=== PATIENT | female | born 1980 | race Caucasian/White ===

== ENCOUNTER 2022-04-11 10:55 | Day surgery (SDC) | payer MEDICAID ==
[~2022-04-11] VITALS: Ht 172.7 cm; Wt 116.0 kg
[2022-04-11] MEDS ORDERED: NO HOME MEDS (11:32)
[2022-04-11] MEDS ORDERED: LIDOcaine 1% 30ml preserv. free vial SQ STA (11:32)
[2022-04-11 11:42] VITALS: BP 155/95
[2022-04-11] MEDS ORDERED: LIDOcaine 1%/PF 5ML 10 MG/ML VIAL ONE (12:30)
[2022-04-11 12:55] VITALS: BP 180/105
[2022-04-11 13:00] VITALS: BP 188/122
[2022-04-11 13:05] VITALS: BP 168/121
[2022-04-11 13:12] VITALS: BP 158/99
== END 2022-04-11 13:20 | disposition home or self-care (01) ==
LOC: SSTAY O 10:55
PROVIDERS: ATTEND Radiology Vascular & Interventional Radiology
DX: R59.9 Enlarged lymph nodes, unspecified (principal); Z88.8 Allergy status to other drugs, medicaments and biological substances; Z79.899 Other long term (current) drug therapy; Z98.890 Other specified postprocedural states; Z20.822 Contact with and (suspected) exposure to COVID-19
CPT/HCPCS: 10005; 87811; J3490; 38505